=== PATIENT | male | born 1960 | race Caucasian/White ===

== ENCOUNTER 2016-12-18 06:23 | Emergency (ER) | payer MEDICAID ==
[~2016-12-18] VITALS: Ht 162.6 cm; Wt 65.8 kg
--- NOTE | 2016-12-18 06:52 | NUR ---
Patient discharged to home in stable conditon. Written and verbal after care instructions given. Patient verbalizes understanding of instructions.
== END 2016-12-18 06:53 | disposition home or self-care (01) ==
LOC: ER 06:25
DX: H92.01 Otalgia, right ear (principal)
CPT/HCPCS: A4663

== ENCOUNTER 2016-12-18 20:52 | Emergency (ER) | payer MEDICAID ==
[~2016-12-18] VITALS: Ht 162.6 cm; Wt 65.8 kg
[2016-12-18] MEDS ORDERED: ONDANSETRON ODT 4 MG TAB.RAPDIS SL ONE (21:30)
[2016-12-18] MEDS ORDERED: HYDROMORPHONE 1 MG/1 ML DISP.SYRIN IM ONE (21:30)
[2016-12-18] MEDS ORDERED: NEOMY/POLYMYX B/HC OTIC SUSP 10 ML BOTTLE OT ONE (21:30)
[2016-12-18] MEDS ORDERED: ONDANSETRON ODT 4 MG TAB.RAPDIS ONE (21:44)
[2016-12-18] MEDS ORDERED: NEOMY/POLYMYX B/HC OTIC SUSP 10 ML BOTTLE ONE (21:44)
[2016-12-18] MEDS ORDERED: HYDROMORPHONE 2 MG/1 ML DISP.SYRIN ONE (21:44)
--- NOTE | 2016-12-18 21:49 | NUR ---
Patient discharged to home in stable conditon WITH TAKING PT HOME. Written and verbal after care instructions given. Patient verbalizes understanding of instructions. WALKED OUT OF ER WITH STEADY GAIT
[2016-12-18 21:50] VITALS: BP 138/82
== END 2016-12-18 21:50 | disposition home or self-care (01) ==
LOC: ER 20:54
DX: H60.91 Unspecified otitis externa, right ear (principal)
CPT/HCPCS: A4663; J1170; Q0162